=== PATIENT | female | born 1965 | race Caucasian/White ===

== ENCOUNTER 2018-05-15 03:42 | Emergency (ER) | payer OTHER ==
[~2018-05-15] VITALS: Ht 154.9 cm; Wt 72.7 kg
[~2018-05-15 03:42] MED LIST: CIPRO 500MG TA500 MG PO; DEPO-PROVER400 MG/ML IM; EXCEDRIN DUAL500 MG PO; METRONIDAZOLE500 MG PO; MULTIPLE VITAMI1 CAP PO; VICODIN 5/5001 UDTAB PO; VITAMIN C BUFF500 MG PO; VITAMIN E28000 IU TP
[2018-05-15 03:48] VITALS: TEMP 97.7
[2018-05-15] MEDS ORDERED: PROZAC 10MG10 MG PO (05:23)
[2018-05-15] MEDS ORDERED: TROKEND100 (05:24)
[2018-05-15] MEDS ORDERED: ZOMIG5 M1 NS (05:25)
[2018-05-15] MEDS ORDERED: CAMBIA50 MG PO (05:26)
[2018-05-15] MEDS ORDERED: DOXYCYCLINE 10100 MG PO (05:40)
[2018-05-15] MEDS ORDERED: PREDNISONE20 MG PO (05:40)
[2018-05-15 07:17] VITALS: BP 118/74; PULSE 79
== END 2018-05-15 07:18 | disposition home or self-care (01) ==
LOC: COL.ER 03:42
DX: J20.9 Acute bronchitis, unspecified (principal); G43.909 Migraine, unspecified, not intractable, without status migrainosus; F17.210 Nicotine dependence, cigarettes, uncomplicated
CPT/HCPCS: J7512

== ENCOUNTER 2020-02-22 22:28 | Emergency (ER) | payer OTHER ==
[~2020-02-22] VITALS: Ht 154.9 cm; Wt 70.9 kg
[~2020-02-22 22:28] MED LIST changes: +CAMBIA50 MG PO; +DOXYCYCLINE 10100 MG PO; +PREDNISONE20 MG PO; +PROZAC 10MG10 MG PO; +TROKEND100; +ZOMIG5 M1 NS
[2020-02-23] MEDS ORDERED: TYLENOL 500MG500 MG PO (00:38)
[2020-02-23] MEDS ORDERED: TROKEND100 (00:39)
[2020-02-23] MEDS ORDERED: ALAVERT10 M1 PO (00:39)
[2020-02-23] MEDS ORDERED: ZOFRAN 4MG T4 MG/TAB PO (00:39)
[2020-02-23] MEDS ORDERED: FLONASEALLERGY NS (00:40)
[2020-02-23] MEDS ORDERED: VENTOLIN0.09 MG IH (00:40)
[2020-02-23] MEDS ORDERED: PREDNISONE20 MG PO (01:22)
[2020-02-23] MEDS ORDERED: NORCO 325 MG-51 TAB PO (01:22)
[2020-02-23 02:16] VITALS: BP 141/94; PULSE 70; TEMP 98.2
== END 2020-02-23 02:20 | disposition home or self-care (01) ==
LOC: COL.ER 22:28
DX: R07.81 Pleurodynia (principal); R07.89 Other chest pain; J45.909 Unspecified asthma, uncomplicated; G43.909 Migraine, unspecified, not intractable, without status migrainosus; Z90.710 Acquired absence of both cervix and uterus; Z90.49 Acquired absence of other specified parts of digestive tract; Z88.6 Allergy status to analgesic agent
CPT/HCPCS: A9284; J7512

== ENCOUNTER → 2020-03-15 | Outpatient (CLI) | payer OTHER ==
[~2020-03-15] MED LIST changes: +ALAVERT10 M1 PO; +FLONASEALLERGY NS; +NORCO 325 MG-51 TAB PO; +TYLENOL 500MG500 MG PO; +VENTOLIN0.09 MG IH; +ZOFRAN 4MG T4 MG/TAB PO
== END ==
LOC: COL.PUL 07:12
DX: J44.9 Chronic obstructive pulmonary disease, unspecified (principal)

== ENCOUNTER 2020-06-05 23:39 | Emergency (ER) | payer OTHER ==
[~2020-06-05] VITALS: Ht 154.9 cm; Wt 70.9 kg
[2020-06-05 23:44] VITALS: BP 135/79; TEMP 98.5
[2020-06-06 00:15] LABS: COLLECTION METHOD CLEAN CATCH
[2020-06-06 00:23] LABS: MUCOUS Present /lpf; PH 5 (5-8); SQUAMOUS EPITHELIAL 0-2 /hpf; URINE APPEARANCE Cloudy; URINE BACTERIA Rare /hpf; URINE BILIRUBIN Negative (NEGATIVE); URINE BLOOD 1+ (NEGATIVE); URINE COLOR Yellow; URINE GLUCOSE Negative (NEGATIVE); URINE KETONE Negative (NEGATIVE); URINE LEUKOCYTE ESTERASE 3+ (NEGATIVE); URINE NITRATE Negative (NEGATIVE); URINE PROTEIN(semi-quant) 1+ (NEGATIVE); URINE RBC >50 /hpf; URINE UROBILINOGEN Negative (NEGATIVE)
[2020-06-06] MEDS ORDERED: BACTRIM DS 8001 TAB PO (00:28)
[2020-06-06 00:45] VITALS: PULSE 81
== END 2020-06-06 00:45 | disposition home or self-care (01) ==
LOC: COL.ER 23:39
PROVIDERS: Emergency Medicine
DX: N30.91 Cystitis, unspecified with hematuria (principal); G43.909 Migraine, unspecified, not intractable, without status migrainosus; Z87.891 Personal history of nicotine dependence; Z79.52 Long term (current) use of systemic steroids

== ENCOUNTER → 2020-07-12 | Outpatient (CLI) | payer OTHER ==
[~2020-07-12] MED LIST changes: +BACTRIM DS 8001 TAB PO
== END ==
LOC: COL.RAD 10:55
DX: S09.90XA Unspecified injury of head, initial encounter (principal)
CPT/HCPCS: Q9967

== ENCOUNTER → 2021-01-31 | Outpatient (CLI) | payer OTHER | LOC: COL.RAD 09:54 | DX: M50.223 Other cervical disc displacement at C6-C7 level (principal); M48.02 Spinal stenosis, cervical region; R51.9 Headache, unspecified | CPT/HCPCS: A9585 ==

== ENCOUNTER 2021-07-02 21:47 | Emergency (ER) | payer OTHER ==
[~2021-07-02] VITALS: Ht 154.9 cm; Wt 70.5 kg
[2021-07-02 21:59] VITALS: TEMP 98.2
[2021-07-02 22:47] LABS: BASO % 0.5 % (0.0-2.0); EOS # 0.1 K/mm3 (0.0-0.7); EOS % 1.6 % (0.0-4.0); GRAN # 3.4 K/mm3 (1.4-6.5); GRAN % 59.4 % (42.2-75.2); HEMATOCRIT 41.4 % (37.0-47.0); HEMOGLOBIN 13.6 g/dl (12.5-16.0); LYMPH # 1.8 K/mm3 (1.2-3.4); LYMPH % 30.9 % (20.0-51.0); MEAN CELL VOLUME 89 fl (80.0-100.0); MEAN CORPUSCULAR HEMOGLOBIN 29 pg (27-31); MEAN CORPUSCULAR HGB CONC 33 g/dl (33.0-37.0); MEAN PLATELET VOLUME 9.8 fl (7.4-10.4); MONO # 0.4 K/mm3 (0.1-0.6); MONO % 7.4 % (1.7-9.3); PLATELET COUNT 274 K/mm3 (130-400); RED BLOOD COUNT 4.67 M/mm3 (4.10-5.30); REDCELL DISTRIBUTION WIDTH-CV 12.3 % (11.5-14.5)
[2021-07-02 23:05] LABS: ALANINE AMINOTRANSFERASE 12 U/L (0-55); ALBUMIN 4.3 gm/dL (3.5-5.0); ALKALINE PHOSPHATASE 92 U/L (40-150); ANION GAP 8 mmol/L (7-16); AST,SGOT 18 U/L (5-34); BILIRUBIN,TOTAL 0.4 mg/dL (0.2-1.2); BLOOD UREA NITROGEN 21 mg/dL (10-20); CALCIUM 9.4 mg/dL (8.4-10.2); CARBON DIOXIDE 24 mmol/L (22-29); CHLORIDE 108 mmol/L (98-107); CREATININE, serum 0.96 mg/dL (0.57-1.11); GLUCOSE 90 mg/dL (70-99); POTASSIUM 3.6 mmol/L (3.5-4.5); SODIUM 140 mmol/L (136-145); TOTAL PROTEIN 8.3 gm/dL (6.2-8.1)
[2021-07-02 23:13] LABS: TROPONIN-I < 0.010 ng/mL (0.00-0.033)
[2021-07-03] MEDS ORDERED: AMOXICILLIN 8751 TAB PO (02:19)
[2021-07-03 02:45] VITALS: BP 118/76; PULSE 84
== END 2021-07-03 02:45 | disposition home or self-care (01) ==
LOC: COL.ER 21:47
PROVIDERS: Personal Emergency Response Attendant
DX: J40 Bronchitis, not specified as acute or chronic (principal); R04.2 Hemoptysis; G43.909 Migraine, unspecified, not intractable, without status migrainosus; Z87.891 Personal history of nicotine dependence; Z79.899 Other long term (current) drug therapy
CPT/HCPCS: J7030; Q9967

== ENCOUNTER → 2021-07-17 | Outpatient (CLI) | payer OTHER ==
[~2021-07-17] MED LIST changes: +AMOXICILLIN 8751 TAB PO
== END ==
LOC: COL.PUL 07:53
DX: R06.02 Shortness of breath (principal)

== ENCOUNTER → 2021-07-30 | Outpatient (CLI) | payer OTHER | LOC: MHCPAIN 11:02 | DX: M54.2 Cervicalgia (principal); M47.812 Spondylosis without myelopathy or radiculopathy, cervical region; G89.29 Other chronic pain | CPT/HCPCS: G0463 ==

== ENCOUNTER → 2021-08-15 | Outpatient (CLI) | payer OTHER | LOC: MHCPAIN 09:00 | DX: M47.812 Spondylosis without myelopathy or radiculopathy, cervical region (principal); M54.12 Radiculopathy, cervical region | CPT/HCPCS: J1100; Q9967 ==

== ENCOUNTER → 2021-08-28 | Outpatient (CLI) | payer OTHER | LOC: MHCPAIN 13:27 | DX: M47.812 Spondylosis without myelopathy or radiculopathy, cervical region (principal); M54.12 Radiculopathy, cervical region; G89.29 Other chronic pain | CPT/HCPCS: G0463 ==

== ENCOUNTER → 2021-09-19 | Outpatient (CLI) | payer OTHER | LOC: MHCPAIN 08:20 | DX: M47.812 Spondylosis without myelopathy or radiculopathy, cervical region (principal); M54.12 Radiculopathy, cervical region | CPT/HCPCS: J0461; J1100; Q9967 ==

== ENCOUNTER → 2021-10-09 | Outpatient (CLI) | payer OTHER | LOC: MHCPAIN 09:47 | DX: M47.892 Other spondylosis, cervical region (principal); M54.12 Radiculopathy, cervical region; G89.29 Other chronic pain | CPT/HCPCS: G0463 ==

== ENCOUNTER → 2021-11-07 | Outpatient (CLI) | payer OTHER | LOC: MHCPAIN 10-24 13:49 | DX: M47.812 Spondylosis without myelopathy or radiculopathy, cervical region (principal); M54.12 Radiculopathy, cervical region | CPT/HCPCS: J1100; Q9967 ==

== ENCOUNTER → 2022-03-06 | Outpatient (CLI) | payer OTHER | LOC: COL.PUL 10:00 | DX: R06.02 Shortness of breath (principal) | CPT/HCPCS: J7674 ==

== ENCOUNTER 2022-08-20 13:45 | Outpatient (RCR) | payer OTHER | END 2022-08-26 | disposition home or self-care (01) | LOC: WSOT | DX: S53.402A Unspecified sprain of left elbow, initial encounter (principal); S60.222A Contusion of left hand, initial encounter; M18.12 Unilateral primary osteoarthritis of first carpometacarpal joint, left hand; X58.XXXA Exposure to other specified factors, initial encounter ==

== ENCOUNTER → 2023-08-21 | Outpatient (CLI) | payer OTHER ==
[~2023-08-21] MED LIST changes: +Albuterol 0.083% Neb Soln 2.5 MG/3 ML UD IH ONE; +CEFTIN500 MG PO
== END ==
LOC: COL.RAD 07:00
DX: J45.40 Moderate persistent asthma, uncomplicated (principal)

== ENCOUNTER → 2023-09-14 | Outpatient (CLI) | payer OTHER ==
[~2023-09-14] MED LIST changes: -Albuterol 0.083% Neb Soln 2.5 MG/3 ML UD IH ONE
== END ==
LOC: MHCPAIN 13:03
DX: M54.12 Radiculopathy, cervical region (principal); M48.02 Spinal stenosis, cervical region; M47.892 Other spondylosis, cervical region
CPT/HCPCS: G0463

== ENCOUNTER → 2023-09-24 | Outpatient (CLI) | payer OTHER ==
[~2023-09-24] MED LIST changes: +Iohexol 300 - 10 ML VIAL ONE; +Lidocaine PF 2% (20 MG/ML) 2 ML VIAL ONE
== END ==
LOC: MHCPAIN 13:21
DX: M47.812 Spondylosis without myelopathy or radiculopathy, cervical region (principal); M48.02 Spinal stenosis, cervical region
CPT/HCPCS: J1100; Q9967

== ENCOUNTER → 2023-10-14 | Outpatient (CLI) | payer OTHER ==
[~2023-10-14] MED LIST changes: -Iohexol 300 - 10 ML VIAL ONE; -Lidocaine PF 2% (20 MG/ML) 2 ML VIAL ONE
== END ==
LOC: MHCPAIN 09:57
DX: M47.812 Spondylosis without myelopathy or radiculopathy, cervical region (principal); M48.02 Spinal stenosis, cervical region
CPT/HCPCS: G0463